=== PATIENT | male | born 1995 | race Caucasian/White ===

== ENCOUNTER 2021-01-08 03:27 | Emergency (ER) | payer SELFPAY ==
[2021-01-08] MEDS ORDERED: Boostrix 0.5 ML (Tdap) VIAL ONE (03:50)
== END 2021-01-08 04:05 | disposition home or self-care (01) ==
LOC: CSHERS 03:27
DX: S61.011A Laceration without foreign body of right thumb without damage to nail, initial encounter (principal); W26.8XXA Contact with other sharp object(s), not elsewhere classified, initial encounter
CPT/HCPCS: 12001; 90471; 90715